=== PATIENT | female | born 1990 | race Caucasian/White ===

== ENCOUNTER 2020-10-14 23:25 | Emergency (ER) | payer SELFPAY ==
[2020-10-14 23:26] VITALS: BP 155/112; PULSE 115; RESP 18; TEMP 36.8; O2SAT 100; BMI 24.2
[2020-10-15 00:18] VITALS: PULSE 114; RESP 16; O2SAT 98
--- NOTE | 2020-10-15 00:33 | ED_ITS ---
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 She presents after a seizure episode after being stopped by the police evidently. She was able to talk through the episode. She experienced tremors and shaking. The family member with her states that that lasted probably 10 minutes. She is back to baseline currently. She refused an IV and blood draw in the ambulance. Onset (ago): minute(s) Location: head Severity: moderate and similar to prior episodes Relieving factors: none Exacerbating factors: other (She notes that stress causes her episodes.) Associated symptoms: Deny chest pain, confusion, cough, dyspnea, fevers/chills, headache(s) or vomiting Treatments prior to arrival: none Review of Systems Const: Denies: fever(s) or chills Card: Denies: chest pain Resp: Denies: dyspnea GI: Denies: vomiting Neuro: Denies: headache(s) or confusion Psych: Reports: anxiety [facility] ED PFSH: Social History Current gender identity: Female Female Reproductive History: Date of last menstrual period: 10/14/20 Physical Exam Const: GENERAL APPEARANCE: cooperative and anxious ORIENTATION/CONSCIOUSNESS: Yes oriented to person, Yes oriented to place and Yes oriented to time HENMT: COMMON NORMALS: normocephalic, external ears normal and Normal external nose present HEAD & SCALP: normocephalic FACE & SINUS: normal facial exam NOSE: Normal external nose present and No nasal discharge present EXTERNAL EAR: Yes external ears normal Eye: COMMON NORMALS: Equal, round and reactive pupils present, EOMs intact bilaterally and conjunctivae normal EYELID: eyelids normal CONJUNCTIVA: Yes conjunctivae normal PUPIL: Yes Equal, round and reactive pupils present Neck/C-Spine: COMMON NORMALS: full ROM GENERAL: No tracheal deviation Chest: COMMONS NORMALS: normal inspection of the chest CHEST: No tenderness Resp: COMMON NORMALS: clear to auscultation bilaterally EFFORT & INSPECTION: No tachypneic, No respiratory distress, No retractions, No uses accessory muscles and No tracheal deviation AUSCULTATION: clear to auscultation bilaterally, no rhonchi, no wheezes and lung sounds not diminished Cardio: COMMON NORMALS: regular rate and regular rhythm RATE: regular rate RHYTHM: regular rhythm HEART SOUNDS: no murmurs PERIPHERAL PULSES: radial pulses present GI: INSPECTION: No abdominal distension AUSCULTATION: No Hyperactive bowel sounds present and No Hypoactive bowel sounds present PALPATION: No Guarding due to palpation present (GI) and No Rigid due to palpation PERCUSSION: no dullness to percussion and no tympanic to percussion Neuro: SENSORIUM/ORIENTATION: Yes oriented to person, Yes oriented to place and Yes oriented to time COORDINATION/BALANCE: [id number] test normal SPEECH: speech normal SENSORY EXAM: Yes extremities MOTOR EXAM: Pronator motor function not present COORDINATION: [id number] test normal Psych: COMMON NORMALS: speech normal APPEARANCE: Yes grossly normal ATTITUDE: Yes Withdrawn affect present ACTIVITY/MOTOR BEHAVIOR: Yes fidgeting SPEECH: Yes normal speech MOOD & AFFECT: Yes depressed mood and Yes tearful Course Vital Signs: Vital signs: Vital Signs Temperature 98.2 F 10/14/20 23:26 Pulse Rate 114 H 10/15/20 00:18 Respiratory Rate 16 10/15/20 00:18 Blood Pressure 155/112 10/14/20 23:26 Pulse Oximetry 98 10/15/20 00:18 MDM - General Adult MDM Narrative: Medical decision making narrative: The patient refused blood draw, did not want to be poked and prodded . She did decided to sign out AGAINST MEDICAL ADVICE. Discharge Plan Discharge Patient Disposition: Left Against Medical Advice Clinical Impression: Pseudoseizure Coding Level of Care Code ED Pumper Helper for Greg Fwd Exam Comprehensive
== END 2020-10-15 00:19 | disposition left against medical advice (07) ==
LOC: ER 23:49
PROVIDERS: Emergency Provider Emergency Medicine
DX: G40.89 Other seizures (principal); Z53.21 Procedure and treatment not carried out due to patient leaving prior to being seen by health care provider
CPT/HCPCS: 99281